=== PATIENT | female | born 1960 | race Caucasian/White ===

== ENCOUNTER 2016-05-02 09:10 | Emergency (ER) | payer MEDICAID, OTHER ==
[2016-05-02 11:41] LABS: APPEARANCE,URINE SLIGHTLY-CLOUDY; BILIRUBIN,URINE SMALL (NEGATIVE); GLUCOSE, URINE NEGATIVE (NEGATIVE); KETONES,URINE TRACE mg/dL (NEGATIVE); LEUKOCYTE ESTERASE,URINE SMALL (NEGATIVE); NITRITE,URINE POSITIVE (NEGATIVE); PROTEIN,URINE 30 mg/dL (NEGATIVE); URINE SPECIFIC GRAVITY 1.024
[2016-05-02] MEDS ORDERED: SULFAMETHOXAZOLE/TRIMETHOPRIM 800-160 MG TABLET PO ONE (11:58)
[2016-05-02] MEDS ORDERED: ONDANSETRON 4 MG TAB.RAPDIS PO ONE (11:58)
[2016-05-02] MEDS ORDERED: PHENAZOPYRIDINE HCL 100 MG TABLET PO ONE (11:59)
--- NOTE | 2016-05-02 12:15 | ER Document Report ---
ED General - General Chief Complaint: Urinary Problem Stated Complaint: URINARY ISSUES,VOMITING/DIARRHEA TRAVEL OUTSIDE OF THE [place] IN LAST 30 DAYS: No - HPI Patient complains to provider of: dysuria vomiting neck pain face pain Notes: Patient coming in for the above stated symptoms. States history ongoing for last 2 days patient states she had a fall this morning hitting her head on a nightstand beside her bed no loss of consciousness now having some neck pain or back pain and right-sided face pain. Patient otherwise denies fevers chills states she is having some mild nausea no vomiting - Related Data Allergies/Adverse Reactions: NSAIDS (Non-Steroidal Anti-Inflamma Allergy (Verified 05/02/16 09:20) Past Medical History - Social History Smoking Status: Former Smoker Frequency of alcohol use: None Drug Abuse: None Family History: Reviewed & Not Pertinent Patient has suicidal ideation: No Patient has homicidal ideation: No - Immunizations Hx Diphtheria, Pertussis, Tetanus Vaccination: Yes Review of Systems - Review of Systems Constitutional: Other - Face pain EENT: No symptoms reported Cardiovascular: No symptoms reported Respiratory: No symptoms reported Gastrointestinal: No symptoms reported Genitourinary: Dysuria Female Genitourinary: No symptoms reported Musculoskeletal: No symptoms reported Skin: No symptoms reported Hematologic/Lymphatic: No symptoms reported Neurological/Psychological: No symptoms reported -: Yes All other systems reviewed and negative Physical Exam - Vital signs Vitals: Temp Pulse Resp BP Pulse Ox 97.4 F 76 20 111/71 97 05/02/16 09:17 05/02/16 09:17 05/02/16 09:17 05/02/16 09:17 05/02/16 09:17 Interpretation: Normal - General General appearance: Appears well, Alert - HEENT Head: Normocephalic, Atraumatic Eyes: Normal Pupils: PERRL Notes: Examination no midline tenderness patient able to be cleared clinically by Nexus - Respiratory Respiratory status: No respiratory distress Chest status: Nontender Breath sounds: Normal Chest palpation: Normal - Cardiovascular Rhythm: Regular Heart sounds: Normal auscultation Murmur: No - Abdominal Inspection: Normal Distension: No distension Bowel sounds: Normal Tenderness: Nontender Organomegaly: No organomegaly - Back Back: Normal, Nontender - Extremities General upper extremity: Normal inspection, Nontender, Normal color, Normal ROM , Normal temperature General lower extremity: Normal inspection, Nontender, Normal color, Normal ROM , Normal temperature, Normal weight bearing. No: Bhavin's sign - Neurological Neuro grossly intact: Yes Cognition: Normal Orientation: AAOx4 Pam Coma Scale Eye Opening: Spontaneous Pam Coma Scale Verbal: Oriented Somers Coma Scale Motor: Obeys Commands Pam Coma Scale Total: 15 Speech: Normal Motor strength normal: LUE, RUE, LLE, RLE Sensory: Normal - Psychological Associated symptoms: Normal affect, Normal mood - Skin Skin Temperature: Warm Skin Moisture: Dry Skin Color: Normal Course - Re-evaluation Re-evalutation: 05/02/16 16:03 Urinalysis shows signs of urinary tract infection. Patient will be given antibiotics anti-medics patient's follow-up with primary care physician urine culture sent - Vital Signs Vital signs: Temp Pulse Resp BP Pulse Ox 97.9 F 68 14 114/72 97 05/02/16 12:31 05/02/16 12:31 05/02/16 12:31 05/02/16 12:31 05/02/16 12:31 - Laboratory Laboratory results interpreted by me: 05/02/16 11:10 Urine Protein 30 H Urine Ketones TRACE H Urine Nitrite POSITIVE H Urine Bilirubin SMALL H Urine Urobilinogen 4.0 H Ur Leukocyte Esterase SMALL H Discharge - Discharge Clinical Impression: Myalgia Urinary tract infection Qualifiers: Urinary tract infection type: site unspecified Hematuria presence: without hematuria Qualified Code(s): N39.0 - Urinary tract infection, site not specified Condition: Good Disposition: HOME, SELF-CARE Instructions: Trimethoprim-Sulfa ([facility]), Urinary Tract Infection ([facility]), Oral Narcotic Medication ([facility]), Myalagia (Muscle Pain) ([facility]) Additional Instructions: Take medication as prescribed. Please follow-up with your primary care physician. Return to ER if symptoms worsen. Prescriptions: Ondansetron [Zofran Odt 4 mg Tablet] 4 mg PO Q4HP PRN #20 tab.rapdis PRN Reason: Sulfamethoxazole/Trimethoprim [Bactrim Ds Tablet] 1 each PO BID #20 tablet Tramadol HCl [Ultram 50 mg Tablet] 50 mg PO ASDIR PRN #20 tablet PRN Reason: Forms: Return to Work Referrals: SAUL PIEDRA FNP [Primary Care Provider] - Follow up in 3-5 days
[2016-05-02 12:38] VITALS: BP 114/72
== END 2016-05-02 12:31 | disposition home or self-care (01) ==
LOC: ER 09:10
DX: M79.1 Myalgia (principal); R51 Headache; M54.2 Cervicalgia; W06.XXXA Fall from bed, initial encounter; Y93.89 Activity, other specified; N39.0 Urinary tract infection, site not specified; R30.0 Dysuria; R11.0 Nausea; Z88.8 Allergy status to other drugs, medicaments and biological substances; Z87.891 Personal history of nicotine dependence
CPT/HCPCS: 99284; 81001; S0119; J3490

== ENCOUNTER 2017-01-03 12:12 | Emergency (ER) | payer OTHER ==
[2017-01-03] MEDS ORDERED: OXYCODONE-ACETAMINOPHEN 5-325 MG TABLET PO ONE (12:43)
--- NOTE | 2017-01-03 12:45 | ER Document Report ---
HPI - HPI Patient complains to provider of: Fall, rib injury, shoulder injury Onset: Yesterday Onset/Duration: Sudden Quality of pain: Sharp Pain Level: 4 Context: Patient states that she was getting out of the bathtub yesterday around 1115 and slipped falling on the floor. Patient states that her arm went out to stop her but slid out from underneath her as well. Patient complains of left rib tenderness and left shoulder joint pain. Patient denies any head injury, loss of consciousness, nausea, or vomiting. Patient complains of pain with deep inspiration. Patient denies any abdominal pain. Associated Symptoms: Other - Left rib tenderness, left shoulder pain. denies: Nonproductive cough, Productive cough, Fever, Nausea, Vomiting Exacerbated by: Movement, Deep breathing Relieved by: Remaining still Similar symptoms previously: No Recently seen / treated by doctor: No - ROS ROS below otherwise negative: Yes Systems Reviewed and Negative: Yes All other systems reviewed and negative - CONSTITUTIONAL Constitutional: DENIES: Fever, Chills - CARDIOVASCULAR Cardiovascular: REPORTS: Chest pain - Left lower rib tenderness - RESPIRATORY Respiratory: DENIES: Coughing - GASTROINTESTINAL Gastrointestinal: DENIES: Abdominal Pain, Nausea, Patient vomiting - MUSCULOSKELETAL Musculoskeletal: REPORTS: Extremity pain - Left shoulder joint pain. DENIES: Back Pain, Neck Pain - DERM Skin Color: Normal Skin Problems: None <ASHA OMALLEY - Last Filed: 01/03/17 16:15> Past Medical History - General Information source: Patient - Social History Smoking Status: Never Smoker Frequency of alcohol use: None Drug Abuse: None Occupation: Housekeeping Family History: Reviewed & Not Pertinent - Past Medical History Cardiac Medical History: Reports: Hx Hypertension Renal/ Medical History: Denies: Hx Peritoneal Dialysis Past Surgical History: Reports: Hx Cholecystectomy, Hx Orthopedic Surgery - Immunizations Hx Diphtheria, Pertussis, Tetanus Vaccination: Yes <ASHA OMALLEY - Last Filed: 01/03/17 16:15> Vertical Provider Document - CONSTITUTIONAL Agree With Documented VS: Yes Exam Limitations: No Limitations General Appearance: WD/WN, No Apparent Distress - INFECTION CONTROL TRAVEL OUTSIDE OF THE [place] IN LAST 30 DAYS: No - HEENT HEENT: Atraumatic, Normocephalic - NECK Neck: Normal Inspection, Supple - RESPIRATORY Respiratory: Breath Sounds Normal, No Respiratory Distress, Other - Left lower anterior rib tenderness, no subcutaneous emphysema, no ecchymosis. Respirations unlabored. negative: Rhonchi, Wheezing O2 Sat by Pulse Oximetry: 100 - CARDIOVASCULAR Cardiovascular: Regular Rhythm, No Murmur, Bradycardia - GI/ABDOMEN Gastrointestinal: Abdomen Soft, Abdomen Non-Tender, No Organomegaly - REPRODUCTIVE Female Genitalia: Normal Inspection - BACK Back: Normal Inspection. negative: CVA Tenderness-Right, CVA Tenderness-Left Notes: No spinal tenderness, step-off, or deformity - MUSCULOSKELETAL/EXTREMETIES Musculoskeletal/Extremeties: MAEW, FROM, Non-Tender - NEURO Level of Consciousness: Awake, Alert, Appropriate Motor/Sensory: No Motor Deficit - DERM Integumentary: Warm, Dry, No Rash <ASHA OMALLEY - Last Filed: 01/03/17 16:15> Course - Vital Signs Vital signs: Temp Pulse Resp BP Pulse Ox 97.6 F 46 L 18 185/93 H 100 01/03/17 12:20 01/03/17 12:20 01/03/17 12:35 01/03/17 12:20 01/03/17 13:42 <MASOUD FONTENOT - Last Filed: 01/03/17 14:03> - Re-evaluation Re-evalutation: 01/03/17 13:39 Dr. Fontenot to bedside for FAST ultrasound, no perihepatic, perisplenic, karrie- cardial or lower pelvic free fluid. 01/03/17 Discussed results of patient's diagnostic test with patient. No concern for pneumothorax, rib fracture or intra-abdominal pathology. Respirations even and unlabored. Vital signs stable. Shoulder without fracture or dislocation. Patient encouraged to follow-up with her primary doctor for recheck as well as orthopedic doctor for any continued pain or problems. - Vital Signs Vital signs: Temp Pulse Resp BP Pulse Ox 97.6 F 46 L 20 185/93 H 100 01/03/17 12:20 01/03/17 12:20 01/03/17 12:20 01/03/17 12:20 01/03/17 12:20 - Diagnostic Test Radiology reviewed: Reports reviewed <ASHA OMALLEY - Last Filed: 01/03/17 16:15> Procedures - Ultrasound/Bedside Ultrasound/Bedside Time completed: 14:03 Ultrasound: Normal, Other - FAST exam completed, no evidence of free fluid <MASOUD FONTENOT - Last Filed: 01/03/17 14:03> - Immobilization Left Shoulder Pre-Proc Neuro Vasc Exam: Normal Immobilizer type: Sling Performed by: PCT Post-Proc Neuro Vasc Exam: Normal Alignment checked and good: Yes <ASHA OMALLEY - Last Filed: 01/03/17 16:15> Discharge <MASOUD FONTENOT - Last Filed: 01/03/17 14:03> <ASHA OMALLEY - Last Filed: 01/03/17 16:15> - Discharge Clinical Impression: Hx of essential hypertension, Rib pain on left side Fall Qualifiers: Encounter type: initial encounter Qualified Code(s): W19.XXXA - Unspecified fall, initial encounter Shoulder sprain Qualifiers: Encounter type: initial encounter Shoulder sprain type: unspecified sprain Laterality: left Qualified Code(s): S43.402A - Unspecified sprain of left shoulder joint, initial encounter Condition: Stable Disposition: HOME, SELF-CARE Instructions: Chest Wall Pain ([facility]), Rib Contusion ([facility]), Shoulder Injury ([facility]) , Temporary Sling ([facility]) Additional Instructions: Return immediately for any new or worsening symptoms Followup with your primary care provider, call tomorrow to make a followup appointment Follow-up with orthopedic doctor for any continued shoulder joint pain Prescriptions: Oxycodone HCl/Acetaminophen [Percocet 5-325 mg Tablet] 1 tab PO ASDIR PRN #15 tablet PRN Reason: Forms: Elevated Blood Pressure, Return to Work Referrals: SABINA,NO [Primary Care Provider] - Follow up as needed [facility] [Provider Group] - Follow up as needed
--- NOTE | 2017-01-03 14:05 | RADIOLOGY REPORT (SQ) ---
EXAM DESCRIPTION: SHOULDER LEFT 2 OR MORE VIEWS COMPLETED DATE/TIME: 01/03/2017 1:49 pm REASON FOR STUDY: fall,left shoulder pain COMPARISON: None. NUMBER OF VIEWS: Three views. TECHNIQUE: Internal rotation, external rotation, and Y view images acquired of the left shoulder. LIMITATIONS: None. FINDINGS: MINERALIZATION: Normal. BONES: No acute fracture or dislocation. No worrisome bone lesions. JOINTS: No dislocation. VISUALIZED LUNGS AND RIBS: No pneumothorax. No rib fracture. SOFT TISSUES: No radiopaque foreign body. OTHER: No other significant finding. IMPRESSION: NEGATIVE STUDY OF THE LEFT SHOULDER. NO RADIOGRAPHIC EVIDENCE OF ACUTE INJURY. TECHNICAL DOCUMENTATION: JOB ID: [id number] [employer]- All Rights Reserved
--- NOTE | 2017-01-03 14:07 | RADIOLOGY REPORT (SQ) ---
EXAM DESCRIPTION: RIBS LEFT W/PA CHEST COMPLETED DATE/TIME: 01/03/2017 1:49 pm REASON FOR STUDY: fall, rib pain COMPARISON: None. TECHNIQUE: Frontal view of the chest and additional views of the left ribs acquired. NUMBER OF VIEWS: Three view. LIMITATIONS: None. FINDINGS: FRONTAL CXR: No pneumothorax. No pleural effusion. No atelectasis or infiltrates. RIBS: No displaced rib fractures. No lytic or blastic bony lesions. OTHER: No other significant finding. IMPRESSION: NO PNEUMOTHORAX. NO DISPLACED RIB FRACTURES. COMMENT: SITE OF TRAUMA/COMPLAINT MARKED/STAMP COMPLETED: No TECHNICAL DOCUMENTATION: JOB ID: [id number] [employer]- All Rights Reserved
[2017-01-03 14:48] VITALS: BP 154/85
== END 2017-01-03 14:50 | disposition home or self-care (01) ==
LOC: ER 12:12
DX: S43.402A Unspecified sprain of left shoulder joint, initial encounter (principal); R07.81 Pleurodynia; W01.0XXA Fall on same level from slipping, tripping and stumbling without subsequent striking against object, initial encounter; Y93.89 Activity, other specified; I10 Essential (primary) hypertension; M25.512 Pain in left shoulder
CPT/HCPCS: 99283

== ENCOUNTER 2019-06-19 14:08 | Emergency (ER) | payer OTHER ==
[2019-06-19] MEDS ORDERED: DIPHENHYDRAMINE HCL 50 MG CAPSULE PO ONE (14:18)
[2019-06-19] MEDS ORDERED: FAMOTIDINE 20 MG TABLET PO ONE (14:18)
[2019-06-19] MEDS ORDERED: METHYLPREDNISOLONE INJ 125 MG/2 ML SDV IM ONE (14:18)
[2019-06-19 14:21] VITALS: BP 165/73
--- NOTE | 2019-06-19 14:23 | ER Document Report ---
HPI - HPI Time Seen by Provider: 06/19/19 14:15 Notes: Patient is a 59-year-old female who presents complaining of hives type rash that began last night and is continued today. Patient states that the rash does itch. She has not taken any medicines for it. Patient states that she noticed areas to her back and right arm as well as a couple spots on her face. No new exposure to chemicals, detergents, soaps, food, clothing, furniture, meds, or travel. No known insect bite. She is able to eat and drink without difficulty. She is urinating normally and having normal bowel movements. No other concerns or complaints at this time. No swelling of the lips/tongue/throat. No drooling or hoarseness. Denies any headache, fever, neck pain, changes in vision/speech/mentation/hearing, URI, sore throat, chest pain, palpitations, syncope, cough, shortness of breath, wheeze, dyspnea, abdominal pain, nausea/vomiting/diarrhea, urinary retention, dysuria, hematuria, loss of control of bowel or bladder, numbness/tingling, saddle anesthesia, muscle paralysis/weakness. - ROS Systems Reviewed and Negative: Yes All other systems reviewed and negative Past Medical History - Social History Smoking Status: Unknown if Ever Smoked Family History: Reviewed & Not Pertinent - Past Medical History Cardiac Medical History: Reports: Hx Hypertension Renal/ Medical History: Denies: Hx Peritoneal Dialysis Past Surgical History: Reports: Hx Cholecystectomy, Hx Hysterectomy, Hx Or thopedic Surgery - Immunizations Hx Diphtheria, Pertussis, Tetanus Vaccination: Yes Vertical Provider Document - CONSTITUTIONAL Agree With Documented VS: Yes Notes: PHYSICAL EXAMINATION: GENERAL: Well-appearing, well-nourished and in no acute distress. A&Ox4. Answe rs questions appropriately. Moves comfortably w/o notable distress HEAD: Atraumatic, normocephalic. EYES: Pupils equal round and reactive to light, extraocular movements intact, sclera anicteric, conjunctiva are normal. ENT: EAC clear b/l. TM's intact b/l without erythema, fluid, or perforation. Nares patent and without discharge. oropharynx no erythema without exudates. No tonsilar hypertrophy without erythema or exudate. No palatine shift. Uvula midline. No tongue protrusion. No drooling, hoarseness, or airway compromise. Moist mucous membranes. No sinus tenderness. No swelling of the tongue/throat/lips. No other evidence of angioedema. NECK: Normal range of motion, supple without lymphadenopathy. No rigidity/meningismus. LUNGS: Breath sounds clear to auscultation bilaterally and equal. No wheezes rales or rhonchi. No retractions HEART: Regular rate and rhythm without murmurs, rubs, gallops. ABDOMEN: Soft, nontender, nondistended abdomen. No guarding, no rebound. Normal bowel sounds present. No CVA tenderness bilaterally. NEUROLOGICAL: Normal speech, normal gait. PSYCH: Normal mood, normal affect. SKIN: There are a few areas of hives type appearing rash to the arms and trunk as well as small areas to the face. - INFECTION CONTROL TRAVEL OUTSIDE OF THE [place] IN LAST 30 DAYS: No Course - Re-evaluation Re-evalutation: 06/19/19 14:21 Patient is an afebrile, well-hydrated, 59-year-old female who presents with a rash I suspect to be hives/allergic. Vitals are acceptable without significant tachycardia, tachypnea, hypoxia, or hypotension. PE is otherwise unremarkable. There is no evidence of angioedema. Patient is nontoxic-appearing and is tolerating p.o. without difficulty. No labs or imaging warranted. Patient was given Solu-Medrol, Benadryl, and Pepcid. Low suspicion for any necrotizing fasciitis, SJS, SSS, drug reaction, sepsis, meningitis, syphilis, Lyme disease, [place] spotted fever, or other systemic emergent condition at this time. Patient aware that condition can change from initial presentation and she needs to monitor symptoms closely and seek medical attention with any acute changes. Recheck with your PCM in 2 to 3 days. Consider consult with dermatology. Return to the ED with any other worsening/concerning symptoms as reviewed. Patient is in agreement. Discharge - Discharge Clinical Impression: Rash and nonspecific skin eruption, Hives Condition: Stable Disposition: HOME, SELF-CARE Additional Instructions: Keep the skin clean Wash with soap and water Tylenol/ibuprofen if needed Triple antibiotic ointment daily if any break in the skin Take medication as directed Monitor for any worsening symptoms Recheck with your PCM in 2-3 days Consider consult with dermatology for ongoing/worsening symptoms Return to the ED with any worsening symptoms and/or development of fever, headache, chest pain, palpitations, syncope, shortness of breath, trouble b reathing, abdominal pain, n/v/d, abscess, purulent discharge, red streaks, worsening swelling, or other worsening symptoms that are concerning to you. Prescriptions: Prednisone [Deltasone 10 mg Tablet] 10 mg PO ASDIR PRN #21 tablet PRN Reason: Epinephrine [Epipen 2-Geovanni] 0.3 mg IJ PRN PRN #1 auto.injct PRN Reason: Forms: Elevated Blood Pressure Referrals: ERICA OLIVARES DO [ACTIVE STAFF] - Follow up as needed
== END 2019-06-19 14:45 | disposition home or self-care (01) ==
LOC: ER 14:08
DX: L50.9 Urticaria, unspecified (principal); I10 Essential (primary) hypertension
CPT/HCPCS: 99282; 96374; J2930

== ENCOUNTER → 2019-07-21 | Outpatient (CLI) | payer OTHER ==
[2019-07-21 12:02] LABS: A TYPE INFLUENZA AG NEGATIVE (NEGATIVE); B INFLUENZA AG NEGATIVE (NEGATIVE)
== END ==
LOC: RDC 11:11
PROVIDERS: ATTEND Registered Nurse
DX: Z20.828 Contact with and (suspected) exposure to other viral communicable diseases (principal)
CPT/HCPCS: 87070; 87635; 87804; 87880